=== PATIENT | male | born 1990 | race Caucasian/White ===

== ENCOUNTER 2018-03-24 06:18 | Emergency (ER) | payer OTHER ==
[~2018-03-24] VITALS: Ht 177.8 cm; Wt 99.8 kg
[2018-03-24 06:28] VITALS: BP_SYST 148
[2018-03-24] MEDS: IBUPROFEN 800 MG TABLET PO ONE ×2 (07:04→07:05)
[2018-03-24 07:30] VITALS: BP_SYST 131
== END 2018-03-24 07:30 ==
LOC: SED 06:18
DX: S62.171A Displaced fracture of trapezium [larger multangular], right wrist, initial encounter for closed fracture (principal); F10.99 Alcohol use, unspecified with unspecified alcohol-induced disorder; V89.2XXA Person injured in unspecified motor-vehicle accident, traffic, initial encounter; Y93.89 Activity, other specified; Y92.410 Unspecified street and highway as the place of occurrence of the external cause; Y99.8 Other external cause status
CPT/HCPCS: 99283